=== PATIENT | female | born 1950 | race Caucasian/White ===

== ENCOUNTER 2017-11-20 08:00 | Outpatient (RCR) | payer BC | END 2018-01-07 | disposition home or self-care (01) | LOC: MKS.ESL.PT | DX: Z48.816 Encounter for surgical aftercare following surgery on the genitourinary system (principal); Z90.710 Acquired absence of both cervix and uterus; Z82.49 Family history of ischemic heart disease and other diseases of the circulatory system; Z80.59 Family history of malignant neoplasm of other urinary tract organ ==

== ENCOUNTER → 2020-12-20 | Outpatient (CLI) | payer MEDICARE, OTHER | LOC: COL.RAD 08:18 | DX: R31.0 Gross hematuria (principal) ==

== ENCOUNTER 2021-07-14 11:58 | Observation (INO) | payer MEDICARE, OTHER ==
[~2021-07-14] VITALS: Ht 154.9 cm; Wt 48.1 kg
[2021-07-14 13:54] LABS: COLLECTION METHOD CLEAN CATCH
[2021-07-14 14:04] LABS: MUCOUS Present (NOT PRESENT); PH 6 (5-8); SQUAMOUS EPITHELIAL 0-2 /hpf (0-10); URINE APPEARANCE Hazy (CLEAR/HAZY); URINE BACTERIA Rare /hpf (NONE SEEN); URINE BILIRUBIN Negative (NEGATIVE); URINE BLOOD 2+ (NEGATIVE); URINE COLOR Amber (YELLOW); URINE GLUCOSE Negative (NEGATIVE); URINE KETONE Negative (NEGATIVE); URINE LEUKOCYTE ESTERASE 2+ (NEGATIVE); URINE NITRATE Positive (NEGATIVE); URINE PROTEIN(semi-quant) 1+ (NEGATIVE); URINE UROBILINOGEN >=4.0 (NEGATIVE)
[2021-07-14 14:14] LABS: BASO % 0.3 % (0.0-2.0); EOS # 0.1 K/mm3 (0.0-0.7); EOS % 1.4 % (0.0-4.0); GRAN % 71.7 % (42.2-75.2); HEMATOCRIT 40.2 % (37.0-47.0); LYMPH # 1.4 K/mm3 (1.2-3.4); LYMPH % 20.7 % (20.0-51.0); MEAN CELL VOLUME 86 fl (80.0-100.0); MEAN CORPUSCULAR HEMOGLOBIN 28 pg (27-31); MEAN CORPUSCULAR HGB CONC 32 g/dl (33.0-37.0); MEAN PLATELET VOLUME 9.6 fl (7.4-10.4); MONO # 0.4 K/mm3 (0.1-0.6); MONO % 5.6 % (1.7-9.3); PLATELET COUNT 245 K/mm3 (130-400); RED BLOOD COUNT 4.69 M/mm3 (4.10-5.30); REDCELL DISTRIBUTION WIDTH-CV 13.8 % (11.5-14.5)
[2021-07-14 14:31] LABS: ALBUMIN 3.6 gm/dL (3.4-4.8); ALKALINE PHOSPHATASE 91 U/L (40-150); ANION GAP 11 mmol/L (7-16); AST,SGOT 12 U/L (5-34); BILIRUBIN,TOTAL 0.5 mg/dL (0.2-1.2); BLOOD UREA NITROGEN 17 mg/dL (10-20); CALCIUM 9.1 mg/dL (8.4-10.2); CARBON DIOXIDE 21 mmol/L (23-31); CHLORIDE 109 mmol/L (98-107); CREATININE, serum 0.75 mg/dL (0.57-1.11); GLUCOSE 88 mg/dL (70-99); POTASSIUM 4.1 mmol/L (3.5-4.5); SODIUM 141 mmol/L (136-145); TOTAL PROTEIN 7.3 gm/dL (6.2-8.1)
[2021-07-14 14:32] LABS: ALANINE AMINOTRANSFERASE < 6 U/L (0-55)
--- NOTE | 2021-07-14 19:00 | NUR ---
Pt to 222 from ER vis jose. Pt ambulatory to bed, standby assist from hallway to bed. Pt reports feeling weak walking to bed but steady. VS stable. Pt reports pain to her lower abdomen and tender when abdomen is pressed on her RUQ. Pt also reports a lot of discharge since January, denies odor to discharge. Pt reports pain being better since IV pain medication given by ER nurse. Plan of care explained. Food given. Call light within reach.
[2021-07-14 19:15] VITALS: BP 141/76; PULSE 62; TEMP 99
[2021-07-14] MEDS ORDERED: ZOLOFT 100MG100 MG PO (19:41)
[2021-07-15 00:45] VITALS: BP 89/53; PULSE 66; TEMP 97.7
[2021-07-15 04:15] VITALS: BP 82/49; PULSE 58; TEMP 98
[2021-07-15 07:37] VITALS: BP 101/60; PULSE 60; TEMP 97.7
[2021-07-15] MEDS ORDERED: ROXICODONE 55 MG/TAB PO (10:42)
[2021-07-15] MEDS ORDERED: AMOXICILLIN 8751 TAB PO (10:44)
--- NOTE | 2021-07-15 12:20 | NUR ---
Antibiotic prescription called to [facility] pharmacy per pt's request d\t local pharmacy closing early today.
[2021-07-15 13:08] VITALS: BP 114/69; PULSE 59; TEMP 97.6
--- NOTE | 2021-07-15 14:07 | NUR ---
Antibiotic complete. Pt awaiting to arrive for discharge.
--- NOTE | 2021-07-15 14:30 | NUR ---
INT discontinued from left forearm with tip intact. Discharge instructions reviewed with pt regarding medications and follow-up as needed. Pt verbalizes understanding. Pt discharged home, escorted out of facility via WC accompanied by RN. Pt's waiting in vehicle to provide ride home.
== END 2021-07-15 14:45 | disposition home or self-care (01) ==
LOC: COL.ER 11:58 → OB 19:37
PROVIDERS: Physician Assistant; ADMIT Obstetrics & Gynecology
DX: N89.8 Other specified noninflammatory disorders of vagina (principal); R10.2 Pelvic and perineal pain; K21.9 Gastro-esophageal reflux disease without esophagitis; F41.9 Anxiety disorder, unspecified; Z79.899 Other long term (current) drug therapy; Z90.710 Acquired absence of both cervix and uterus; Z90.49 Acquired absence of other specified parts of digestive tract; Z82.49 Family history of ischemic heart disease and other diseases of the circulatory system; Z80.51 Family history of malignant neoplasm of kidney
CPT/HCPCS: G0378; J2270; J2543; J7120; Q9967

== ENCOUNTER 2024-01-12 13:06 | Emergency (ER) | payer MEDICARE, OTHER ==
[~2024-01-12] VITALS: Ht 154.9 cm; Wt 50.5 kg
[~2024-01-12 13:06] MED LIST: AMOXICILLIN 8751 TAB PO; ROXICODONE 55 MG/TAB PO; ZOLOFT 100MG100 MG PO
[2024-01-12 13:15] VITALS: BP 136/82; PULSE 70; TEMP 97.6
[2024-01-12] MEDS ORDERED: PREDNISONE20 MG PO (16:21)
[2024-01-12] MEDS ORDERED: FLEXERIL 1010 MG/TAB PO (16:21)
[2024-01-12] MEDS ORDERED: CEFTIN 250250 MG/TAB PO (16:21)
== END 2024-01-12 15:28 | disposition home or self-care (01) ==
LOC: COL.ER 13:06
DX: S16.1XXA Strain of muscle, fascia and tendon at neck level, initial encounter (principal); J01.90 Acute sinusitis, unspecified; V19.9XXA Pedal cyclist (driver) (passenger) injured in unspecified traffic accident, initial encounter; Y92.410 Unspecified street and highway as the place of occurrence of the external cause